=== PATIENT | female | born 1945 | race Caucasian/White ===

== ENCOUNTER 2016-07-14 15:04 | Outpatient (CLI) | payer MEDICARE | END 2016-07-14 15:05 | disposition home or self-care (01) | DX: Z12.31 Encounter for screening mammogram for malignant neoplasm of breast (principal); Z85.3 Personal history of malignant neoplasm of breast; Z90.12 Acquired absence of left breast and nipple; Z80.3 Family history of malignant neoplasm of breast ==

== ENCOUNTER 2016-08-25 16:03 | Outpatient (CLI) | payer MEDICARE | END 2016-08-25 16:04 | disposition home or self-care (01) | DX: R03.0 Elevated blood-pressure reading, without diagnosis of hypertension (principal) ==

== ENCOUNTER 2016-08-27 10:02 | Outpatient (CLI) | payer MEDICARE | END 2016-08-27 10:03 | disposition home or self-care (01) | DX: R82.5 Elevated urine levels of drugs, medicaments and biological substances (principal); R31.9 Hematuria, unspecified; N39.0 Urinary tract infection, site not specified ==

== ENCOUNTER 2016-12-27 20:18 | Outpatient (CLI) | payer MEDICARE | END 2016-12-27 20:19 | disposition critical access hospital (66) | LOC: EMS 20:18 | PROVIDERS: ATTEND Surgery | DX: M25.551 Pain in right hip (principal) | CPT/HCPCS: A0425; A0429 ==

== ENCOUNTER 2016-12-27 20:27 | Emergency (ER) | payer MEDICARE ==
--- NOTE | 2016-12-27 20:29 | ED Physician Documentation ---
PD HPI LOWER EXT INJURY - Stated complaint Stated Complaint: HIP DISLOCATION - History obtained from History obtained from: Patient, EMS - History of Present Illness PD HPI LOW EXT INJURY LOCATION: Right, Hip Type of injury: Twist (she had her right hip flexed up while she was trimming her toenails and felt the hip pop out of place.) Where injury occurred: Home Timing - onset: How many minutes ago (30) Timing - details: Abrupt onset, Still present Worsened by: Moving Associated symptoms: No: Weakness, Numbness, Swelling Contributing factors: Prior ortho surgery, Prosthetic joint. No: Anticoagulated Similar symptoms before: Diagnosis (has had it dislocate 3 times since replacement in 2008, with past one being 2013. Her Ortho was not wanting to do revision, since so rare occurrence.) Recently seen: Not recently seen Review of Systems Constitutional: denies: Fever, Chills Nose: denies: Rhinorrhea / runny nose, Congestion Throat: denies: Sore throat Cardiac: denies: Chest pain / pressure, Palpitations Respiratory: denies: Dyspnea, Cough GI: denies: Nausea, Vomiting, Diarrhea Skin: denies: Abrasion (s), Laceration (s) PD PAST MEDICAL HISTORY - Past Medical History Cardiovascular: None Respiratory: None Neuro: None Endocrine/Autoimmune: HyPOthyroidism, Other - Past Surgical History Past Surgical History: Yes Ortho: Hip replacement /[employer]: Hysterectomy, Mastectomy HEENT: Tonsil/Adenoidectomy, Other - Present Medications Home Medications: Ambulatory Orders Medication Instructions Recorded Confirmed Aspirin [Aspir 81] 81 mg PO DAILY 05/22/13 09/12/13 Fludrocortisone [Florinef] 05/22/13 09/12/13 Hydrocortisone 60 mg PO 05/22/13 09/12/13 Levothyroxine [Synthroid] 125 mcg PO QDAC 05/22/13 09/12/13 - Allergies Allergies/Adverse Reactions: Allergies Allergy/AdvReac Type Severity Reaction Status Date / Time Sulfa (Sulfonamide Allergy Rash Verified 05/22/13 21:14 Antibiotics) - Social History Does the pt smoke?: No Smoking Status: Never smoker Does the pt drink ETOH?: No Does the pt have substance abuse?: No - Immunizations Immunizations are current?: Yes - POLST Patient has POLST: Yes POLST Status: Full Code PD ED PE NORMAL - Vitals Vital signs reviewed: Yes - General General: Alert and oriented X 3, No acute distress (not uncomfortable with lying still. Pain with any ROM of the right hip though. ), Well developed/ nourished - HEENT HEENT: Pharynx benign (able to open mouth widely. No dentures. ) - Cardiac Cardiac: RRR, No murmur - Respiratory Respiratory: Clear bilaterally - Abdomen Abdomen: Soft, Non tender - Derm Derm: Normal color, Warm and dry - Extremities Extremities: No edema, No calf tenderness / cord, Other (right hip with internal rotation and some shortening. Pain and guarding with attempted ROM. ) - Neuro Neuro: Alert and oriented X 3, No motor deficit, No sensory deficit, Normal speech Results - Vitals Vitals: Vital Signs - 24 hr 12/27/16 12/27/16 12/27/16 20:31 21:04 21:25 Temperature 36.1 C L Heart Rate 78 77 82 Respiratory 16 16 16 Rate Blood Pressure 184/96 H 195/97 H O2 Saturation 98 97 12/27/16 12/27/16 12/27/16 21:35 21:38 21:41 Temperature Heart Rate 95 92 86 Respiratory 16 18 16 Rate Blood Pressure 171/99 H 189/96 H 116/96 H O2 Saturation 99 100 97 12/27/16 12/27/16 12/27/16 21:43 21:45 21:52 Temperature Heart Rate 80 83 82 Respiratory 16 16 Rate Blood Pressure 199/128 H 175/80 H O2 Saturation 98 94 12/27/16 12/27/16 22:04 22:28 Temperature Heart Rate 87 72 Respiratory 16 16 Rate Blood Pressure 158/119 H 188/84 H O2 Saturation 98 98 Oxygen O2 Source Room air - Rads (name of study) right hp Radiology: Prelim report reviewed (hip dislocation) post reduction Radiology: Prelim report reviewed (successful reduction) Procedures - Reduction Body part reduced: Right, Hip, prosthetic Fracture or dislocation: Dislocation Anesthesia: Conscious sedation, Dilaudid, Propofol Hip reduction technique: Allis - flex/pull/rotate Reduction aftercare: NV intact, Xray confirms reduction, Alignment improved, Patient tolerated well PD MEDICAL DECISION MAKING - ED course Complexity details: considered differential (hip prosthetic dislocation. ), d/w patient Departure - Departure Disposition: 01 Home, Self Care Clinical Impression: Dislocation of hip joint prosthesis Qualifiers: Encounter type: initial encounter Qualified Code(s): T84.029A - Dislocation of unspecified internal joint prosthesis, initial encounter Condition: Stable Record reviewed to determine appropriate education?: Yes Instructions: ED Hip Replace Dislocation Reduc, ED Sedation Procedural Discon Follow-Up: Singh Kamara MD [Provider Admit Priv/Credential] - Comments: Hip precautions as with prior dislocations (see instructions). Tylenol or Ibuprofen as needed for pains. Call and discuss this with your Orthopedist on Thursday. Discharge Date/Time: 12/27/16 22:32
[2016-12-27] MEDS ORDERED: KETOROLAC 30 MG/ML VIAL ONE (20:45)
[2016-12-27] MEDS ORDERED: HYDROmorphone 1 MG/ML SYRINGE ONE ×2 (20:46→21:21)
[2016-12-27] MEDS: SODIUM CHLORIDE 0.9% 1,000 ML IV ONE (21:02)
[2016-12-27] MEDS: KETOROLAC 60 MG/2 ML VIAL IVP STA (21:02)
[2016-12-27] MEDS: HYDROmorphone 1 MG/ML SYRINGE IVP STA ×2 (21:02→21:29)
[2016-12-27] MEDS ORDERED: diazePAM INJ 5 MG/ML SYRINGE ONE (21:08)
[2016-12-27] MEDS: diazePAM INJ 5 MG/ML SYRINGE IVP STA (21:10)
--- NOTE | 2016-12-27 21:19 | XRAY Preliminary Report ---
Exam: XR Hip w/Pelvis 2-3V RT IMPRESSION: Dislocation of the right femoral head prosthesis from the acetabular prosthesis. [facility] SITE ID: [id number]
[2016-12-27] MEDS ORDERED: PROPOFOL 200 MG/20 ML VIAL IVP ONE (21:21)
--- NOTE | 2016-12-27 21:22 | XRAY Report ---
EXAM: RIGHT HIP AND PELVIS RADIOGRAPHY EXAM DATE: 12/27/2016 09:05 PM. HISTORY: Likely right hip dislocation. COMPARISONS: 09/12/2013. TECHNIQUE: 1 view of the pelvis and 1 view of the hip. FINDINGS: Bones: Right hip replacement. No dislocation of the femoral prosthesis from the acetabular prosthesis . Joints: Mild left hip osteoarthritis. Right femoral prosthetic dislocation. Soft Tissues: Normal. No soft tissue swelling. IMPRESSION: Dislocation of the right femoral head prosthesis from the acetabular prosthesis. [facility] Referring Provider Line: [phone] SITE ID: [id number]
[2016-12-27] MEDS: PROPOFOL 200 MG/20 ML VIAL IVP STA (22:06)
[2016-12-27 22:29] VITALS: BP 188/84
--- NOTE | 2016-12-27 22:45 | XRAY Preliminary Report ---
Exam: XR Hip w/Pelvis 2-3V RT IMPRESSION: 1. Interval relocation of right hip arthroplasty dislocation. [facility] SITE ID: [id number]
--- NOTE | 2016-12-27 22:53 | XRAY Report ---
EXAM: RIGHT HIP AND PELVIS RADIOGRAPHY EXAM DATE: 12/27/2016 10:08 PM. HISTORY: Post reduction. COMPARISONS: 12/27/2016 earlier today. TECHNIQUE: 1 view of the pelvis and 1 view of the hip. FINDINGS: Bones: Normal. No fracture or bone lesion. Joints: Right hip arthroplasty with interval relocation since the most recent comparison. Long-standi ng areas of abnormal calcification seen inferomedial to the hip in the soft tissues, probably related to recurrent dislocations. Acetabular inclination is 43.5 degrees on the frontal view. Soft Tissues: Normal. No soft tissue swelling. IMPRESSION: 1. Interval relocation of right hip arthroplasty dislocation. [facility] Referring Provider Line: [phone] SITE ID: [id number]
== END 2016-12-27 22:32 | disposition home or self-care (01) ==
LOC: EDUNIT# → ED 20:27
DX: T84.020A Dislocation of internal right hip prosthesis, initial encounter (principal); X50.1XXA Overexertion from prolonged static or awkward postures, initial encounter; Y92.019 Unspecified place in single-family (private) house as the place of occurrence of the external cause; E03.9 Hypothyroidism, unspecified; Z79.82 Long term (current) use of aspirin
CPT/HCPCS: 27265; 94770; 96374; 96375; 99284

== ENCOUNTER 2017-02-02 08:06 | Outpatient (CLI) | payer MEDICARE ==
[2017-02-02 08:46] LABS: BASOPHILS # (AUTO) 0.1 10^3/uL (0.0-0.1); BASOPHILS % (AUTO) 0.4 %; EOSINOPHILS # (AUTO) 0.4 10^3/uL (0.0-0.7); EOSINOPHILS % (AUTO) 2.3 %; HCT - HEMATOCRIT 45.7 % (37.0-47.0); HGB - HEMOGLOBIN 14.7 g/dL (12.0-16.0); LYMPHOCYTES # (AUTO) 2.1 10^3/uL (1.5-3.5); LYMPHOCYTES % (AUTO) 12.9 %; MEAN CORPUSCULAR HEMOGLOBIN 28.2 pg (27.0-31.0); MEAN CORPUSCULAR HGB CONC 32.1 g/dL (32.0-36.0); MEAN CORPUSCULAR VOLUME 87.9 fL (81.0-99.0); MEAN PLATELET VOLUME 8.3 fL (7.9-10.8); MONOCYTES % (AUTO) 6.3 %; NEUTROPHILS # (AUTO) 12.8 10^3/uL (1.5-6.6); NEUTROPHILS % (AUTO) 78.1 %; RED CELL DISTRIBUTION WIDTH 14.4 % (12.0-15.0); UNCORRECTED WHITE BLOOD COUNT 16.4 x10^3/uL; WHITE BLOOD COUNT 16.4 x10^3/uL (4.8-10.8)
[2017-02-02 09:10] LABS: ALBUMIN/GLOBULIN RATIO 1.4 (1.0-2.2); BILIRUBIN,TOTAL 0.8 mg/dL (0.2-1.0); BUN - BLOOD UREA NITROGEN 20 mg/dL (6-20); CALCIUM 8.7 mg/dL (8.5-10.3); CARBON DIOXIDE - CO2 27 mmol/L (21-32); CHLORIDE 102 mmol/L (101-111); CHOL/HDL RATIO 2.3 (<4.4); CHOLESTEROL 212 mg/dL; CREATININE 0.8 mg/dL (0.4-1.0); GFR - MDRD 71 (>89); GLUCOSE 89 mg/dL (70-100); HDL CHOLESTEROL 92 mg/dL; SODIUM 141 mmol/L (135-145); TOTAL PROTEIN 6.9 g/dL (6.7-8.2); TRIGLYCERIDES 154 mg/dL; VLDL CHOLESTEROL 31 mg/dL
== END 2017-02-02 08:07 | disposition home or self-care (01) ==
LOC: LAB 08:06
PROVIDERS: ATTEND Physician Assistant Medical
DX: E27.1 Primary adrenocortical insufficiency (principal); E03.9 Hypothyroidism, unspecified; Z79.899 Other long term (current) drug therapy
CPT/HCPCS: 36415; 80053; 80061; 82024; 82533; 84443; 85025

== ENCOUNTER 2018-01-28 14:11 | Outpatient (CLI) | payer MEDICARE ==
--- NOTE | 2018-01-28 15:25 | XRAY Report ---
Procedure Date: 01/28/2018 Accession Number: [id number] / [id number] Procedure: XR - Hip w/Pelvis 2-3V LT CPT Code: FULL RESULT: EXAM: Hip w/Pelvis 2-3V LT DATE: 01/28/2018 2:29 PM CLINICAL HISTORY: HIP PAIN,LEFT COMPARISON: 12/27/2016. TECHNIQUE: 1 view of the pelvis and 1 view of the hip. FINDINGS: The patient is again noted to be status post right total hip arthroplasty. Prominent periprosthetic lucency along the acetabular component of the prosthesis is redemonstrated, similar to prior. Soft tissue calcifications in the soft tissues medial to the right hip replacement are again noted. The left femoral acetabular joint demonstrates mild degenerative changes. No dislocation of the left hip. 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 No fracture or dislocation of the left hip. [facility]
== END 2018-01-28 14:12 | disposition home or self-care (01) ==
LOC: DI 14:11
PROVIDERS: ATTEND Internal Medicine
DX: M25.552 Pain in left hip (principal); M16.12 Unilateral primary osteoarthritis, left hip

== ENCOUNTER 2018-02-10 07:39 | Outpatient (CLI) | payer MEDICARE ==
[2018-02-10 08:06] LABS: BASOPHILS % (AUTO) 0.3 %; EOSINOPHILS # (AUTO) 0.3 10^3/uL (0.0-0.7); EOSINOPHILS % (AUTO) 2.4 %; HGB - HEMOGLOBIN 14.3 g/dL (12.0-16.0); LYMPHOCYTES # (AUTO) 2.8 10^3/uL (1.5-3.5); LYMPHOCYTES % (AUTO) 25.3 %; MEAN CORPUSCULAR HEMOGLOBIN 28.3 pg (27.0-31.0); MEAN CORPUSCULAR HGB CONC 32.7 g/dL (32.0-36.0); MEAN CORPUSCULAR VOLUME 86.5 fL (81.0-99.0); MEAN PLATELET VOLUME 8.3 fL (7.9-10.8); NEUTROPHILS # (AUTO) 6.9 10^3/uL (1.5-6.6); PLT - PLATELET COUNT 287 10^3/uL (130-450); RED BLOOD COUNT 5.05 10^6/uL (4.20-5.40); RED CELL DISTRIBUTION WIDTH 13.9 % (12.0-15.0); WHITE BLOOD COUNT 10.9 x10^3/uL (4.8-10.8)
[2018-02-10 08:32] LABS: ALBUMIN 3.9 g/dL (3.2-5.5); ALBUMIN/GLOBULIN RATIO 1.3 (1.0-2.2); ALKALINE PHOSPHATASE 67 IU/L (42-121); ALT ALANINE AMINOTRANSFERASE 18 IU/L (10-60); AST ASPARTATE AMINOTRANSFERASE 21 IU/L (10-42); BILIRUBIN,TOTAL 0.9 mg/dL (0.2-1.0); BUN - BLOOD UREA NITROGEN 18 mg/dL (6-20); CALCIUM 9.1 mg/dL (8.5-10.3); CARBON DIOXIDE - CO2 30 mmol/L (21-32); CHLORIDE 102 mmol/L (101-111); CHOL/HDL RATIO 2.6 (<4.4); CHOLESTEROL 202 mg/dL; CREATININE 0.7 mg/dL (0.4-1.0); GFR - MDRD 82 (>89); GLUCOSE 92 mg/dL (70-100); HDL CHOLESTEROL 79 mg/dL; LDL CHOLESTEROL,CALCULATED 94 mg/dL; LDL/HDL RATIO 1.2 (<4.4); SODIUM 141 mmol/L (135-145); VLDL CHOLESTEROL 29 mg/dL
== END 2018-02-10 07:40 | disposition home or self-care (01) ==
LOC: LAB 07:39
PROVIDERS: ATTEND Physician Assistant Medical
DX: M25.552 Pain in left hip (principal); Z79.899 Other long term (current) drug therapy; E27.1 Primary adrenocortical insufficiency; E03.9 Hypothyroidism, unspecified; R03.0 Elevated blood-pressure reading, without diagnosis of hypertension
CPT/HCPCS: 36415; 80053; 80061; 82024; 83721; 84443; 85025

== ENCOUNTER 2018-03-25 10:05 | Outpatient (CLI) | payer MEDICARE ==
--- NOTE | 2018-03-29 16:13 | Mammography Report ---
Reason: SCREENING MAMMO Procedure Date: 03/25/2018 Accession Number: [id number] / [id number] Procedure: PAIGE - Screening Mammo Right w/Lm CPT Code: FULL RESULT: EXAM: Screening Mammo Right w/Lm DATE: 03/25/2018 10:27 AM CLINICAL HISTORY: 72-year-old female with history of left breast cancer status post mastectomy and chemoradiation. TECHNIQUE: Right CC and MLO views were obtained. COMPARISON: 07/14/2016, 07/06/2015, 07/05/2014, 06/29/2013. FINDINGS: The right breast demonstrates scattered fibroglandular densities. No suspicious masses, clustered microcalcifications, or regions of architectural distortion are identified. IMPRESSION: Negative examination RECOMMENDATION: Routine annual screening unless otherwise clinically indicated. BIRADS CATEGORY 1: Negative STANDARD QUALIFYING STATEMENTS: 1. This examination was not reviewed with the aid of Computer-Aided Detection (CAD). 2. A negative or benign imaging report should not delay biopsy if clinically suspicious findings are present. Consider surgical consultation if warrented. More than 5% of cancers are not identified by imaging. 3. Dense breasts may obscure an underlying neoplasm. 4. This examination was reviewed with the aid of 3D breast imaging (tomosynthesis).
== END 2018-03-25 10:06 | disposition home or self-care (01) ==
LOC: DI 10:05
PROVIDERS: ATTEND Physician Assistant Medical
DX: Z12.31 Encounter for screening mammogram for malignant neoplasm of breast (principal); Z85.3 Personal history of malignant neoplasm of breast
CPT/HCPCS: 77063

== ENCOUNTER 2018-05-17 09:41 | Day surgery (SDC) | payer MEDICARE ==
[2018-05-17] MEDS ORDERED: LACTATED RINGERS 1,000 ML IV ONE (10:36)
[2018-05-17] MEDS ORDERED: MIDAZOLAM 2 MG/2 ML VIAL IVP ONE (11:07)
[2018-05-17] MEDS ORDERED: fentaNYL 100 MCG/2 ML VIAL IVP ONE (11:07)
[2018-05-17 12:32] VITALS: BP 122/91
== END 2018-05-17 09:42 | disposition home or self-care (01) ==
LOC: SDS 09:41
PROVIDERS: ATTEND Surgery
PROC: 0DBN8ZZ Excision of Sigmoid Colon, Via Natural or Artificial Opening Endoscopic (ICD-10-PCS; principal; 2018-05-17 11:00)
DX: R19.5 Other fecal abnormalities (principal); D12.5 Benign neoplasm of sigmoid colon; K64.8 Other hemorrhoids
CPT/HCPCS: 45385; J7120

== ENCOUNTER 2018-10-28 08:55 | Outpatient (CLI) | payer MEDICARE ==
--- NOTE | 2018-10-29 08:38 | DEXA Report ---
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 Regions measured are the AP Spine, femoral neck, and if needed forearm. COMPARISON: None. In accordance with the International Society for Clinical Densitometry (ISCD) guidelines, data from previous exams may be reanalyzed using current recommendations and techniques. This is done to allow a more accurate basis for comparison with the current study. FINDINGS: The data for the lumbar spine is as follows: BMD (g/cm/cm) T-SCORE Z-SCORE REGION L1 0.937 -1.6 -0.1 L2 1.047 -1.3 0.2 L3 1.160 -0.3 1.2 L4 1.148 -0.4 1.1 TOTAL 1.075 -0.9 0.6 NOTE: All evaluable vertebrae are used for classification The data for the hip is as follows: BMD (g/cm/cm) T-SCORE Z-SCORE REGION Neck 0.687 -2.5 -0.8 TOTAL 0.832 -1.4 0.1 NOTE: The femoral neck or total proximal femur, whichever is lowest, is used for classification. IMPRESSION: THE WHO CLASSIFICATION BASED ON THE INTERNATIONAL REFERENCE STANDARD IS OSTEOPOROSIS. THE FRACTURE RISK IS HIGH. Please note that the osteoporotic bone density is identified in the femoral neck only. RECOMMENDATION: Patients with diagnosis of osteoporosis or osteopenia should have regular bone mineral density assessment. For those eligible for Medicare, routine testing is allowed once every 2 years. Testing frequency can be increased for patients who have rapidly progressing disease or for those who are receiving medical therapy to restore bone mass. COMMENT: World Health Organization (WHO) definitions for osteoporosis and osteopenia: NORMAL BMD: T-score at -1.0 or higher, fracture risk is low OSTEOPENIA BMD: T-score between -1.0 and -2.5, fracture risk is increased. OSTEOPOROSIS BMD: T-score at -2.5 or lower, fracture risk is high. National Osteoporosis Foundation recommends: 1. Obtain adequate dietary calcium (at least 1200 mg per day) and vitamin D (400-800 international units per day). 2. Participate, as appropriate, in regular weightbearing and muscle-strengthening exercise. 3. Avoid tobacco use and reduce alcohol and caffeine intake. 4. For more detailed information see the website at www.NOF.org.
== END 2018-10-28 08:56 | disposition home or self-care (01) ==
LOC: DI 08:55
PROVIDERS: ATTEND Nurse Practitioner
DX: M81.0 Age-related osteoporosis without current pathological fracture (principal)
CPT/HCPCS: 77080

== ENCOUNTER 2019-02-28 06:55 | Outpatient (CLI) | payer MEDICARE ==
[2019-02-28 07:09] LABS: BASOPHILS # (AUTO) 0.1 10^3/uL (0.0-0.1); BASOPHILS % (AUTO) 0.6 %; EOSINOPHILS # (AUTO) 0.3 10^3/uL (0.0-0.7); EOSINOPHILS % (AUTO) 2.2 %; HGB - HEMOGLOBIN 13.8 g/dL (12.0-16.0); LYMPHOCYTES # (AUTO) 4.7 10^3/uL (1.5-3.5); LYMPHOCYTES % (AUTO) 38.1 %; MEAN CORPUSCULAR HEMOGLOBIN 28.9 pg (27.0-31.0); MEAN CORPUSCULAR HGB CONC 31.4 g/dL (32.0-36.0); MEAN CORPUSCULAR VOLUME 92.1 fL (81.0-99.0); MONOCYTES % (AUTO) 7.9 %; NEUTROPHILS # (AUTO) 6.2 10^3/uL (1.5-6.6); NEUTROPHILS % (AUTO) 50.2 %; PLT - PLATELET COUNT 300 10^3/uL (130-450); RED BLOOD COUNT 4.78 10^6/uL (4.20-5.40); RED CELL DISTRIBUTION WIDTH 14.6 % (12.0-15.0); WHITE BLOOD COUNT 12.4 x10^3/uL (4.8-10.8)
[2019-02-28 08:06] LABS: ALBUMIN 3.9 g/dL (3.2-5.5); ALBUMIN/GLOBULIN RATIO 1.3 (1.0-2.2); ALKALINE PHOSPHATASE 53 IU/L (42-121); ALT ALANINE AMINOTRANSFERASE 17 IU/L (10-60); AST ASPARTATE AMINOTRANSFERASE 20 IU/L (10-42); BILIRUBIN,TOTAL 0.6 mg/dL (0.2-1.0); BUN - BLOOD UREA NITROGEN 21 mg/dL (6-20); CALCIUM 8.8 mg/dL (8.5-10.3); CARBON DIOXIDE - CO2 29 mmol/L (21-32); CHLORIDE 106 mmol/L (101-111); CHOL/HDL RATIO 2.3 (<4.4); CHOLESTEROL 205 mg/dL; CREATININE 0.7 mg/dL (0.4-1.0); GFR - MDRD 82 (>89); GLUCOSE 82 mg/dL (70-100); HDL CHOLESTEROL 88 mg/dL; LDL CHOLESTEROL,CALCULATED 95 mg/dL; LDL/HDL RATIO 1.1 (<4.4); SODIUM 143 mmol/L (135-145); TOTAL PROTEIN 6.8 g/dL (6.7-8.2); VLDL CHOLESTEROL 22 mg/dL
== END 2019-02-28 06:56 | disposition home or self-care (01) ==
LOC: LAB 06:55
PROVIDERS: ATTEND Nurse Practitioner
DX: I10 Essential (primary) hypertension (principal); E03.9 Hypothyroidism, unspecified; E27.1 Primary adrenocortical insufficiency; Z79.52 Long term (current) use of systemic steroids
CPT/HCPCS: 36415; 80053; 80061; 82024; 83721; 84443; 85025

== ENCOUNTER 2019-04-06 14:41 | Outpatient (CLI) | payer MEDICARE ==
--- NOTE | 2019-04-07 08:59 | Mammography Report ---
Reason: ROUTINE MAMMO Procedure Date: 04/06/2019 Accession Number: [id number] / [id number] Procedure: PAIGE - Screening Mammo Right w/Lm CPT Code: FULL RESULT: EXAM: Screening Mammo Right w/Lm DATE: 04/06/2019 3:04 PM CLINICAL HISTORY: Screening encounter. History of benign right breast biopsy. Personal history of breast cancer status post left mastectomy. Family history of breast cancer in the mother at the age of 41. TECHNIQUE: (R) - Right CC and MLO views were obtained. COMPARISON: 03/25/2018 through 06/21/2009. PARENCHYMAL PATTERN: (A) - The breast(s) demonstrate(s) scattered fibroglandular densities. FINDINGS: There are no suspicious masses, calcifications, or areas of distortion. IMPRESSION: Negative examination. BI-RADS category 1. RECOMMENDATION: (ANNUAL) - Recommend routine annual screening mammography. BI-RADS CATEGORY: (1) - Negative. STANDARD QUALIFYING STATEMENTS: 1. This examination was not reviewed with the aid of Computer-Aided Detection (CAD). 2. A negative or benign imaging report should not preclude biopsy if clinically suspicious findings are present. 3. Dense breasts may obscure an underlying neoplasm. 4. This examination was reviewed with the aid of 3D breast imaging (tomosynthesis).
== END 2019-04-06 14:42 | disposition home or self-care (01) ==
LOC: DI 14:41
DX: Z12.31 Encounter for screening mammogram for malignant neoplasm of breast (principal); Z85.3 Personal history of malignant neoplasm of breast; Z90.12 Acquired absence of left breast and nipple; Z80.3 Family history of malignant neoplasm of breast
CPT/HCPCS: 77063

== ENCOUNTER 2019-06-06 07:40 | Outpatient (CLI) | payer MEDICARE ==
[2019-06-06 08:30] LABS: THYROID STIMULATING HORMONE 25.19 uIU/mL (0.34-5.60)
[2019-06-06 08:34] LABS: FREE T4 (FREE THYROXINE) 0.82 ng/dL (0.58-1.64)
== END 2019-06-06 07:41 | disposition home or self-care (01) ==
LOC: LAB 07:40
PROVIDERS: ATTEND Nurse Practitioner
DX: E03.9 Hypothyroidism, unspecified (principal); E27.1 Primary adrenocortical insufficiency
CPT/HCPCS: 36415; 84439; 84443; 84481

== ENCOUNTER 2019-08-10 08:12 | Outpatient (CLI) | payer MEDICARE | END 2019-08-10 08:13 | disposition home or self-care (01) | LOC: LAB 08:12 | PROVIDERS: ATTEND Nurse Practitioner | DX: E03.9 Hypothyroidism, unspecified (principal); E27.1 Primary adrenocortical insufficiency | CPT/HCPCS: 36415; 81599; 82024; 82634; 84443; 84481 ==

== ENCOUNTER 2020-03-06 07:10 | Outpatient (CLI) | payer MEDICARE ==
[2020-03-06 07:54] LABS: THYROID STIMULATING HORMONE 11.08 uIU/mL (0.34-5.60)
[2020-03-06 07:55] LABS: FREE T3 3.28 pg/mL (2.5-3.9)
[2020-03-06 07:56] LABS: FREE T4 (FREE THYROXINE) 0.92 ng/dL (0.58-1.64)
== END 2020-03-06 07:11 | disposition home or self-care (01) ==
LOC: LAB 07:10
PROVIDERS: ATTEND Nurse Practitioner
DX: E03.9 Hypothyroidism, unspecified (principal)
CPT/HCPCS: 36415; 84439; 84443; 84481

== ENCOUNTER 2021-04-24 10:11 | Outpatient (CLI) | payer MEDICARE ==
--- NOTE | 2021-05-01 09:08 | Mammography Report ---
UNILATERAL RIGHT DIGITAL SCREENING MAMMOGRAM 3D/2D - LEFT BREAST POST MASTECTOMY: 04/24/2021 CLINICAL: Routine screening. Personal history of left breast cancer. Comparison is made to exams dated: 04/06/2019 mammogram, 03/25/2018 mammogram, 07/14/2016 mammogram, mammogram, 07/05/2014 mammogram, and 06/29/2013 mammogram - [facility]. Ther e are scattered fibroglandular elements in right breast. No significant masses, calcifications, or other findings are seen in the breast. There has been no significant interval change. IMPRESSION: NEGATIVE There is no mammographic evidence of malignancy. A 1 year screening mammogram is recommended. This exam was interpreted at Station ID: [id number]. NOTE: For mammograms, a report in lay terms will be sent to the patient. Approximately 15% of breast malignancies will not be visualized mammographically. In the management of a palpable breast mass, a negative mammogram must not discourage biopsy of a clinically suspicious lesion. Electronically Signed By: Luke Helton M.D. [email or web address]:04/30/2021 14:11:52 ACR BI-RADS Category 1: Negative [id number] PARENCHYMAL PATTERN: (A) - The breast(s) demonstrate(s) scattered fibroglandular densities. BI-RADS CATEGORY: (1) - 1 RECOMMENDATION: (ANNUAL) - Recommend routine annual screening mammography. [id number] 1 year screening LATERALITY: (B)
== END 2021-04-24 10:12 | disposition home or self-care (01) ==
LOC: DI 10:11
DX: Z12.31 Encounter for screening mammogram for malignant neoplasm of breast (principal); Z85.3 Personal history of malignant neoplasm of breast

== ENCOUNTER 2021-07-31 09:27 | Outpatient (CLI) | payer MEDICARE ==
[2021-07-31 09:47] LABS: BASOPHILS # (AUTO) 0.1 10^3/uL (0.0-0.1); BASOPHILS % (AUTO) 0.4 %; EOSINOPHILS # (AUTO) 0.2 10^3/uL (0.0-0.7); HCT - HEMATOCRIT 45.1 % (37.0-47.0); HGB - HEMOGLOBIN 13.9 g/dL (12.0-16.0); LYMPHOCYTES # (AUTO) 3.3 10^3/uL (1.5-3.5); LYMPHOCYTES % (AUTO) 20.8 %; MEAN CORPUSCULAR HEMOGLOBIN 27.6 pg (27.0-31.0); MEAN CORPUSCULAR HGB CONC 30.8 g/dL (32.0-36.0); MEAN CORPUSCULAR VOLUME 89.7 fL (81.0-99.0); MEAN PLATELET VOLUME 10.3 fL (7.9-10.8); MONOCYTES # (AUTO) 0.9 10^3/uL (0.0-1.0); MONOCYTES % (AUTO) 5.8 %; NEUTROPHILS # (AUTO) 11.4 10^3/uL (1.5-6.6); NEUTROPHILS % (AUTO) 71.4 %; PLT - PLATELET COUNT 335 10^3/uL (130-450); RED BLOOD COUNT 5.03 10^6/uL (4.20-5.40); RED CELL DISTRIBUTION WIDTH 14.6 % (12.0-15.0); WHITE BLOOD COUNT 15.9 x10^3/uL (4.8-10.8)
[2021-07-31 10:12] LABS: ALBUMIN/GLOBULIN RATIO 1.3 (1.0-2.2); ALKALINE PHOSPHATASE 51 IU/L (42-121); ALT ALANINE AMINOTRANSFERASE 26 IU/L (10-60); AST ASPARTATE AMINOTRANSFERASE 28 IU/L (10-42); BILIRUBIN,TOTAL 0.9 mg/dL (0.2-1.0); BUN - BLOOD UREA NITROGEN 15 mg/dL (6-20); CALCIUM 8.5 mg/dL (8.5-10.3); CARBON DIOXIDE - CO2 27 mmol/L (21-32); CHLORIDE 100 mmol/L (101-111); CHOL/HDL RATIO 2.5 (<4.4); CHOLESTEROL 212 mg/dL; CREATININE 0.8 mg/dL (0.4-1.0); GFR - MDRD 70 (>89); GLUCOSE 96 mg/dL (70-100); HDL CHOLESTEROL 84 mg/dL; LDL CHOLESTEROL,CALCULATED 103 mg/dL; LDL/HDL RATIO 1.2 (<4.4); POTASSIUM 2.9 mmol/L (3.5-5.0); SODIUM 140 mmol/L (135-145); TOTAL PROTEIN 7.2 g/dL (6.7-8.2); TRIGLYCERIDES 124 mg/dL; VLDL CHOLESTEROL 25 mg/dL
[2021-07-31 10:14] LABS: THYROID STIMULATING HORMONE 2.85 uIU/mL (0.34-5.60)
== END 2021-07-31 09:28 | disposition home or self-care (01) ==
LOC: LAB 09:27
PROVIDERS: ATTEND Internal Medicine
DX: E27.1 Primary adrenocortical insufficiency (principal); R53.83 Other fatigue; C50.919 Malignant neoplasm of unspecified site of unspecified female breast; I10 Essential (primary) hypertension; E03.9 Hypothyroidism, unspecified; M81.0 Age-related osteoporosis without current pathological fracture
CPT/HCPCS: 36415; 80053; 80061; 82306; 82533; 82607; 83721; 84443; 85025

== ENCOUNTER 2021-09-04 09:39 | Outpatient (CLI) | payer MEDICARE ==
[2021-09-04 09:59] LABS: BASOPHILS # (AUTO) 0.1 10^3/uL (0.0-0.1); BASOPHILS % (AUTO) 0.4 %; EOSINOPHILS # (AUTO) 0.2 10^3/uL (0.0-0.7); EOSINOPHILS % (AUTO) 1.3 %; HCT - HEMATOCRIT 43.6 % (37.0-47.0); HGB - HEMOGLOBIN 13.7 g/dL (12.0-16.0); LYMPHOCYTES # (AUTO) 2.6 10^3/uL (1.5-3.5); LYMPHOCYTES % (AUTO) 18.3 %; MEAN CORPUSCULAR HGB CONC 31.4 g/dL (32.0-36.0); MEAN PLATELET VOLUME 10.4 fL (7.9-10.8); MONOCYTES % (AUTO) 6.8 %; NEUTROPHILS # (AUTO) 10.3 10^3/uL (1.5-6.6); NEUTROPHILS % (AUTO) 72.6 %; PLT - PLATELET COUNT 304 10^3/uL (130-450); RED CELL DISTRIBUTION WIDTH 14.8 % (12.0-15.0); WHITE BLOOD COUNT 14.1 x10^3/uL (4.8-10.8)
[2021-09-04 10:08] LABS: CALCIUM 8.6 mg/dL (8.5-10.3); CREATININE 0.8 mg/dL (0.4-1.0); POTASSIUM 2.9 mmol/L (3.5-5.0)
== END 2021-09-04 09:40 | disposition home or self-care (01) ==
LOC: LAB 09:39
PROVIDERS: ATTEND Internal Medicine
DX: E87.6 Hypokalemia (principal); D72.829 Elevated white blood cell count, unspecified
CPT/HCPCS: 36415; 80048; 85025

== ENCOUNTER 2021-12-25 08:00 | Outpatient (CLI) | payer MEDICARE ==
[2021-12-25 16:35] LABS: CALCIUM 9.1 mg/dL (8.5-10.3); CREATININE 0.7 mg/dL (0.4-1.0); POTASSIUM 3.3 mmol/L (3.5-5.0)
== END 2021-12-25 23:59 | disposition home or self-care (01) ==
LOC: LAB 08:00
PROVIDERS: ATTEND Internal Medicine
DX: E27.1 Primary adrenocortical insufficiency (principal); E87.6 Hypokalemia; E03.9 Hypothyroidism, unspecified
CPT/HCPCS: 36415; 80048; 84443